=== PATIENT | female | born 1995 | race Caucasian/White ===

== ENCOUNTER 2022-03-06 10:23 | Inpatient (IN) | payer OTHER ==
[2022-03-06 11:35] LABS: #Lymphocytes 0.8 thou/uL (1.20-3.40); #Monocytes 0.5 thou/uL (0.11-0.59); #Neutrophils 7.2 thou/uL (1.40-6.50); %Basophils 0.1 % (0.0-1.0); %Eosinophils 0.3 % (0.0-10.0); %Lymphocytes 9.3 % (21.0-51.0); %Monocytes 5.8 % (0.0-10.0); %Neutrophils 84.6 % (42.0-75.0); Hemoglobin 12.3 g/dL (12.0-16.0); Mean Corpuscular HGB CONC 33.1 g/dL (32.0-36.0); Mean Corpuscular Hemoglobin 31.5 pg (27.0-31.0); Mean Corpuscular Volume 95.2 fl (78.0-98.0); Mean Platelet Volume 8.6 fL (7.4-10.4); Platelet Count 207 10x3/uL (130-400); RBC Distribution Width 11.2 % (11.5-14.5); Red Blood Cell (RBC) Count 3.89 mill/uL (4.20-5.40); White Blood Cell (WBC) Count 8.5 10x3/uL (4.8-10.8)
[2022-03-06] MEDS ORDERED: LORazepam 2 MG/ML SYR.(CARPUJECT) ONE (11:40)
[2022-03-06 11:45] LABS: BHCG - Serum Negative (NEGATIVE); Pregs Control Background? CLEAR/WHITE (CLR/WHITE); Pregs Control Bar Appear? YES (CONTROL BAR)
[2022-03-06 11:53] LABS: Acetaminophen Less than 10.0 mcg/mL (10.0-30.0); Alcohol Less than 10 mg/dL (Less than 10); Salicylate Less than 8.0 mg/dL (15.0-30.0)
[2022-03-06 11:54] LABS: ALT (SGPT) 12 U/L (8-55); AST (SGOT) 17 U/L (5-34); Albumin 3.9 g/dL (3.5-5.0); Alkaline Phosphatase 44 U/L (40-110); Anion Gap 10 mmol/L (10-20); BUN (Urea Nitrogen) 9 mg/dL (7.0-18.7); Bilirubin, Total 0.8 mg/dL (0.2-1.2); Calc. Creatinine Clearance 0 mL/min (70-130); Calcium 8.7 mg/dL (7.8-10.44); Carbon Dioxide 27 mmol/L (22-29); Chloride 103 mmol/L (98-107); Estimated GFR 117; Globulin 2.8 g/dL (2.4-3.5); Glucose 91 mg/dL (70-105); Potassium 3.9 mmol/L (3.5-5.1); Protein, Total 6.7 g/dL (6.0-8.3); Sodium 136 mmol/L (136-145)
[2022-03-06] MEDS ORDERED: chlordiazePOXIDE HCl 25 MG CAP PO SCH ×2 (12:30→21:00)
[2022-03-06] MEDS ORDERED: Ondansetron ODT 4 MG TAB PO PRN (13:14)
[2022-03-06] MEDS ORDERED: Senokot S 8.6-50 MG TAB PO PRN (13:14)
[2022-03-06] MEDS ORDERED: Ondansetron PF 4 MG/2 ML Vial IVP PRN (13:14)
[2022-03-06] MEDS ORDERED: Lorazepam 2 MG/ML VIAL SLOW IVP PRN (13:14)
[2022-03-06] MEDS ORDERED: Calcium Carbonate 500 MG ChewTAB PO PRN (13:14)
[2022-03-06] MEDS ORDERED: Lorazepam 1 MG TAB PO PRN (13:14)
[2022-03-06] MEDS ORDERED: Multivit, Therapeutic 1 TAB PO SCH (13:30)
[2022-03-06] MEDS ORDERED: Folic Acid 1 MG TAB PO SCH (13:30)
[2022-03-06 13:58] LABS: Bilirubin Negative (Negative); Blood, Urine Negative (Negative); Clarity Turbid (Clear); Glucose, Urine (Dipstick) Normal (Negative); Ketone, Urine Negative (Negative); Leukocyte 500 Leu/uL (Negative); Nitrite 2+ (Negative); Protein, Urine (Dipstick) Negative (Neg-Trace); RBC/HPF 0-3 HPF (0-3); Urobilinogen Normal mg/dL (Less than 2); WBC/HPF Greater than 50 HPF (0-3)
[2022-03-06 13:59] LABS: Bacteria/HPF 1+ HPF (None Seen); Pregnancy Test - Urine (BHCG) Negative (Negative); Pregu Control Background? CLEAR/WHITE (CLR/WHITE); Pregu Control Bar Appear? YES (CONTROL BAR)
[2022-03-06 14:05] LABS: Amphetamine Detected (NotDetected); Barbiturates Screen Not Detected (NotDetected); Benzodiazepine Screen Detected (NotDetected); Cocaine Metabolite Screen Not Detected (NotDetected); Methadone Not Detected (NotDetected); Methamphetamine Detected (NotDetected); Opiate Screen Not Detected (NotDetected); Oxycodone Screen Not Detected (NotDetected); Phencyclidine (PCP) Not Detected (NotDetected); THC/Cannabinoid Screen Not Detected (NotDetected); Tricyclic Screen Not Detected (NotDetected)
[2022-03-06 15:18] VITALS: BMI 17.6
[2022-03-06] MEDS: cefTRIAXone\\ROCEPHIN 1 GM in Sodium Chloride 0.9% 100 ML IVPB SCH (15:43)
[2022-03-06] MEDS: Thiamine HCl 200 MG/2 ML VIAL SLOW IVP SCH (15:47)
[2022-03-06] MEDS: Acetaminophen 325 MG TAB PO PRN (20:15)
[2022-03-06] MEDS ORDERED: Acetaminophen 500 MG TAB PO SCH (22:45)
[2022-03-07 06:21] LABS: #Eosinphils 0.1 thou/uL (0.0-0.7); #Lymphocytes 1.4 thou/uL (1.20-3.40); #Monocytes 0.8 thou/uL (0.11-0.59); #Neutrophils 6.4 thou/uL (1.40-6.50); %Basophils 0.2 % (0.0-1.0); %Eosinophils 0.7 % (0.0-10.0); %Monocytes 9.4 % (0.0-10.0); %Neutrophils 73.7 % (42.0-75.0); Hemoglobin 13.1 g/dL (12.0-16.0); Mean Corpuscular HGB CONC 33.6 g/dL (32.0-36.0); Mean Corpuscular Hemoglobin 32.8 pg (27.0-31.0); Mean Corpuscular Volume 97.5 fl (78.0-98.0); Mean Platelet Volume 9.7 fL (7.4-10.4); Platelet Count 191 10x3/uL (130-400); RBC Distribution Width 11.2 % (11.5-14.5); White Blood Cell (WBC) Count 8.7 10x3/uL (4.8-10.8)
[2022-03-07 06:38] LABS: ALT (SGPT) 10 U/L (8-55); AST (SGOT) 13 U/L (5-34); Albumin 3.4 g/dL (3.5-5.0); Alkaline Phosphatase 44 U/L (40-110); Anion Gap 12 mmol/L (10-20); BUN (Urea Nitrogen) 6 mg/dL (7.0-18.7); Bilirubin, Total 0.6 mg/dL (0.2-1.2); Calc. Creatinine Clearance 107 mL/min (70-130); Calcium 8.2 mg/dL (7.8-10.44); Carbon Dioxide 23 mmol/L (22-29); Chloride 106 mmol/L (98-107); Estimated GFR 123; Globulin 2.6 g/dL (2.4-3.5); Glucose 104 mg/dL (70-105); Magnesium 1.8 mg/dL (1.6-2.6); Potassium 3.7 mmol/L (3.5-5.1); Sodium 137 mmol/L (136-145)
[2022-03-07] MEDS ORDERED: chlordiazePOXIDE HCl 25 MG CAP PO SCH ×2 (07:45→14:00)
[2022-03-07] MEDS ORDERED: LORazepam 2 MG/ML SYR.(CARPUJECT) IVP PRN (07:49)
[2022-03-07] MEDS ORDERED: cloNIDine 0.1 MG TAB PO PRN (07:50)
[2022-03-07] MEDS ORDERED: Enoxaparin Sodium 40 MG/0.4 ML SYRINGE SC SCH (09:00)
[2022-03-07] MEDS ORDERED: FLU VACC QS2022-23(6MOS UP)/PF 60 MCG/0.5 ML SYRINGE IM ONE (09:00)
[2022-03-07] MEDS ORDERED: Heparin 5,000 UNITS/ML VIAL SC SCH (09:00)
[2022-03-07] MEDS: Folic Acid 1 MG TAB PO SCH (09:16)
[2022-03-07] MEDS: Multivit, Therapeutic 1 TAB PO SCH (09:17)
[2022-03-07] MEDS ORDERED: ALPRAZolam 0.25 MG TAB PO PRN (11:59)
[2022-03-07] MEDS ORDERED: Lorazepam 1 MG TAB PO PRN (13:14)
[2022-03-07] MEDS: Thiamine HCl 200 MG/2 ML VIAL SLOW IVP SCH (13:38)
[2022-03-07] MEDS: cefTRIAXone\\ROCEPHIN 1 GM in Sodium Chloride 0.9% 100 ML IVPB SCH (14:05)
[2022-03-07 19:07] LABS: Chlam.trachomatis by PCR,Urine Not Detected (NotDetected)
[2022-03-08] MEDS: Folic Acid 1 MG TAB PO SCH (08:51)
[2022-03-08] MEDS: Multivit, Therapeutic 1 TAB PO SCH (08:51)
[2022-03-08] MEDS ORDERED: chlordiazePOXIDE HCl 25 MG CAP PO SCH ×4 (09:00→09:15)
[2022-03-08] MEDS ORDERED: Lorazepam 1 MG TAB PO PRN (13:14)
[2022-03-08] MEDS ORDERED: Lorazepam 0.5 MG TAB PO SCH (13:15)
[2022-03-08] MEDS: cefTRIAXone\\ROCEPHIN 1 GM in Sodium Chloride 0.9% 100 ML IVPB SCH ×2 (14:48→14:56)
[2022-03-08] MEDS: Thiamine HCl 200 MG/2 ML VIAL SLOW IVP SCH ×2 (14:48→14:56)
[2022-03-08] MEDS ORDERED: Cefdinir 300 MG CAP PO SCH (15:00)
[2022-03-08] MEDS: ALPRAZolam 0.25 MG TAB PO PRN ×2 (15:05→19:46)
[2022-03-08] MEDS: Cefdinir 300 MG CAP PO SCH (19:46)
[2022-03-09] MEDS: Acetaminophen 325 MG TAB PO PRN (08:16)
[2022-03-09] MEDS: ALPRAZolam 0.25 MG TAB PO PRN (08:16)
[2022-03-09] MEDS: Cefdinir 300 MG CAP PO SCH (08:16)
[2022-03-09] MEDS: Folic Acid 1 MG TAB PO SCH (08:16)
[2022-03-09] MEDS: Multivit, Therapeutic 1 TAB PO SCH (08:16)
[2022-03-09] MEDS ORDERED: Thiamine 100 MG TAB PO SCH (09:00)
[2022-03-09] MEDS ORDERED: chlordiazePOXIDE HCl 25 MG CAP PO SCH (09:00)
[2022-03-09] MEDS ORDERED: Lorazepam 0.5 MG TAB PO PRN (13:14)
[2022-03-09 15:45] VITALS: BP 110/69; TEMP 98.6
== END 2022-03-09 16:01 | disposition home or self-care (01) | DRG 897 ==
LOC: SUATTDRO 10:23 → ERS 10:23 → T4-A 13:21
PROVIDERS: ADMIT Internal Medicine; ATTEND Internal Medicine
PROC: HZ2ZZZZ Detoxification Services for Substance Abuse Treatment (ICD-10-PCS; principal; 2022-03-06)
DX: F13.20 Sedative, hypnotic or anxiolytic dependence, uncomplicated (principal); F50.2 Bulimia nervosa; Z68.1 Body mass index [BMI] 19.9 or less, adult; F41.1 Generalized anxiety disorder; Z20.822 Contact with and (suspected) exposure to COVID-19; F43.10 Post-traumatic stress disorder, unspecified; F31.9 Bipolar disorder, unspecified; F42.9 Obsessive-compulsive disorder, unspecified; Z79.899 Other long term (current) drug therapy
CPT/HCPCS: 36415; 80053; 80306; 80307; 81003; 81015; 81025; 83605; 83735; 84443; 84703; 85025; 87040; 87077; 87086; 87186; 87491; 87591; 87804; 96374; J0696; J1644; J3411; J3490; U0003; U0005